=== PATIENT | male | born 2005 | race Caucasian/White ===

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

== ENCOUNTER 2025-05-24 12:36 | Emergency (ER) | payer OTHER ==
[~2025-05-24] VITALS: Ht 180.3 cm; Wt 99.8 kg
[2025-05-24] MEDS ORDERED: Ondansetron Hydrochloride 4 MG/2 ML VIAL IV ONE (13:15)
[2025-05-24] MEDS ORDERED: SODIUM CHLORIDE 0.9% 1,000 ML IV ONE (13:15)
[2025-05-24 13:24] LABS: BILIRUBIN 1+ (Negative); BLOOD Negative (Negative); CLARITY Turbid (Clear); COLOR Orange (Yellow); GLUCOSE Negative (Negative); KETONE Trace (Negative); LEUKO ESTERASE Trace (Negative); NITRITE Negative (Negative); SPECIFIC GRAVITY >= 1.030 (1.001-1.030)
[2025-05-24 13:28] LABS: BASO % 0.5 % (0.0-1.0); EOS % 0.5 % (1.0-4.0); HEMATOCRIT 45.3 % (42.0-52.0); MEAN CELL VOLUME 87.8 fl (80.0-94.0); MEAN CORPUSCULAR HGB 29.5 pg (27.0-31.0); MEAN CORPUSCULAR HGB CONC 33.6 g/dl (33.0-37.0); MEAN PLATELET VOLUME 9.8 fl (9.6-12.3); MONO # 0.4 10*3/uL (0.1-1.0); MONO % 11.3 % (3.0-9.0); NEUT # 2.7 10*3/uL (2.3-7.9); PLATELET COUNT AUTOMATED 236 10*3/uL (130-400); RED BLOOD COUNT 5.16 10*6/uL (4.50-5.90); WHITE BLOOD COUNT 3.9 10*3/uL (4.8-10.8)
[2025-05-24 13:34] LABS: PH 8.5 (4.5-8.0)
[2025-05-24 13:38] LABS: BACTERIA 3+
[2025-05-24 13:51] LABS: ALKALINE PHOSPHATASE 96 U/L (46-116); BUN 10 mg/dl (9-23); CHLORIDE 103 mmol/L (98-107); LIPASE 25 U/L (12-53); POTASSIUM 3.9 mmol/L (3.4-5.1); SGPT/ALT 27 U/L (5-49); TOTAL PROTEIN 7.3 gm/dL (6.0-8.0)
[2025-05-24] MEDS ORDERED: Ciprofloxacin Hydrochloride 500 MG TAB PO ONE (16:00)
[2025-05-24] MEDS ORDERED: METRONIDAZOLE500 M1 PO (16:00)
[2025-05-24] MEDS ORDERED: CIPRO500 MG PO (16:00)
[2025-05-24] MEDS ORDERED: metroNIDAZOLE 500 MG TAB PO ONE (16:00)
[2025-05-24] MEDS ORDERED: Ondansetron4 MG PO (16:03)
== END 2025-05-24 16:21 | disposition home or self-care (01) ==
LOC: ED 12:36
PROVIDERS: Nurse Practitioner Family
DX: K52.9 Noninfective gastroenteritis and colitis, unspecified (principal)